=== PATIENT | male | born 1965 | race Caucasian/White ===

== ENCOUNTER 2023-06-26 09:35 | Inpatient (IN) | payer OTHER ==
[2023-06-26 10:42] LABS: BASO % 1.7 % (0-2.0); EOS % 4.6 % (0-4.5); HEMATOCRIT 37.2 % (35.4-49); HEMOGLOBIN 12.9 GM/dL (11.7-16.9); LYMPH % 15.8 % (8-40); MCHC 34.6 g/dl (32.0-35.9); MEAN CELL VOLUME 83.8 fl (80-96); MEAN PLT VOLUME 7.9 fl (7.5-11.1); MONO % 6.8 % (3.8-10.2); NEUT % 71.1 % (42.8-82.8); PLATELET COUNT 329 10^3/uL (134-434); RBC 4.44 M/mm3 (4.00-5.60); RDW 13.8 % (11.9-15.9); WHITE BLOOD COUNT 7.4 K/mm3 (4.0-10.0)
[2023-06-26 10:51] LABS: POTASSIUM 5.1 mmol/L (3.5-5.1)
[2023-06-26 10:54] LABS: ALBUMIN 2.7 g/dl (3.4-5.0); BLOOD UREA NITROGEN 19.6 mg/dL (7-18)
[2023-06-26 10:57] LABS: CREATININE 0.8 mg/dL (0.55-1.3)
[2023-06-26 10:58] LABS: TOT PROT 5.9 g/dl (6.4-8.2)
[2023-06-26 10:59] LABS: BILIRUBIN,TOTAL 0.4 mg/dL (0.2-1)
[2023-06-26 11:02] LABS: N-TERMINAL BNP 781.6 pg/ml (5-125)
[2023-06-26] MEDS ORDERED: NITROGLYCERIN SUBLINGUAL 1/150 0.4 MG TAB ONE (11:35)
[2023-06-26] MEDS: NITROGLYCERIN SUBLINGUAL 1/150 0.4 MG TAB SL ONE (11:38)
[2023-06-26] MEDS: ASPIRIN 81 MG CHEWABLE TABLETS PO ONE ×2 (11:38→12:36)
[2023-06-26] MEDS ORDERED: ASPIRIN 81 MG CHEWABLE TABLETS ONE (12:34)
[2023-06-26] MEDS ORDERED: FUROSEMIDE 40 MG/4 ML INJECTABLE VIAL ONE (13:18)
[2023-06-26] MEDS: FUROSEMIDE 40 MG/4 ML INJECTABLE VIAL IVPUSH ONE (13:20)
[2023-06-26] MEDS ORDERED: LOSARTAN POTASSIUM 50 MG TABLET ONE (15:16)
[2023-06-26] MEDS ORDERED: METOPROLOL TARTRATE 50 MG TABLET (FP) ONE (15:16)
[2023-06-26] MEDS: METOPROLOL TARTRATE 50 MG TABLET (FP) PO SCH (15:21)
[2023-06-26] MEDS: LOSARTAN POTASSIUM 50 MG TABLET PO SCH (15:22)
[2023-06-26] MEDS: CELECOXIB 100 MG CAPSULE PO SCH (15:34)
[2023-06-26] MEDS: INSULIN ASPART SLIDING SCALE (NOVOLOG) 1 VIAL SQ SCH (17:14)
[2023-06-26] MEDS ORDERED: INSULIN (NOVOLOG) ASPART 100 UNITS/ML 10ML VIAL ONE (17:15)
[2023-06-26 20:44] VITALS: BMI 41.1
[2023-06-26] MEDS ORDERED: HEPARIN NA (PORCINE) 5,000 UNITS/ML 1ML VIAL SQ SCH (22:00)
[2023-06-26] MEDS: POLYETHYLENE GLYCOL (HEALTHYLAX) 3350 17 GM PACKET PO SCH (22:22)
[2023-06-26] MEDS: APIXABAN 5 MG TABLET PO SCH (22:22)
[2023-06-26] MEDS: ACETAMINOPHEN 500 MG TABLET (FP) PO PRN (22:37)
[2023-06-27 07:46] LABS: HEMATOCRIT 36.2 % (35.4-49); HEMOGLOBIN 12.1 GM/dL (11.7-16.9); MCH 28.2 pg (25.7-33.7); MCHC 33.4 g/dl (32.0-35.9); MEAN CELL VOLUME 84.3 fl (80-96); MEAN PLT VOLUME 7.7 fl (7.5-11.1); PLATELET COUNT 337 10^3/uL (134-434); RBC 4.29 M/mm3 (4.00-5.60); RDW 13.9 % (11.9-15.9); WHITE BLOOD COUNT 7.3 K/mm3 (4.0-10.0)
[2023-06-27] MEDS ORDERED: ACETAMINOPHEN 500 MG TABLET (FP) PO PRN (08:20)
[2023-06-27 08:21] LABS: POTASSIUM 5.2 mmol/L (3.5-5.1)
[2023-06-27 08:27] LABS: BLOOD UREA NITROGEN 29.5 mg/dL (7-18)
[2023-06-27 08:30] LABS: CREATININE 0.8 mg/dL (0.55-1.3)
[2023-06-27] MEDS: ASPIRIN COATED 81 MG TABLET.EC PO SCH (09:04)
[2023-06-27] MEDS: FUROSEMIDE 40 MG/4 ML INJECTABLE VIAL IVPUSH SCH (09:04)
[2023-06-27] MEDS: ACETAMINOPHEN 325 MG TABLET (FP) PO PRN (20:02)
[2023-06-28] MEDS ORDERED: INSULIN (NOVOLOG) ASPART 100 UNITS/ML 10ML VIAL ONE (06:48)
[2023-06-28 07:12] LABS: HEMATOCRIT 35.3 % (35.4-49); HEMOGLOBIN 12.1 GM/dL (11.7-16.9); MCH 28.7 pg (25.7-33.7); MCHC 34.2 g/dl (32.0-35.9); MEAN PLT VOLUME 7.9 fl (7.5-11.1); PLATELET COUNT 304 10^3/uL (134-434); RBC 4.21 M/mm3 (4.00-5.60); RDW 13.6 % (11.9-15.9); WHITE BLOOD COUNT 7.9 K/mm3 (4.0-10.0)
[2023-06-28 07:26] LABS: POTASSIUM 5.1 mmol/L (3.5-5.1)
[2023-06-28 07:29] LABS: CALCIUM 8.5 mg/dL (8.5-10.1)
[2023-06-28 07:30] LABS: MAGNESIUM 1.9 mg/dL (1.8-2.4)
[2023-06-28 07:32] LABS: ALBUMIN 2.6 g/dl (3.4-5.0); BLOOD UREA NITROGEN 26.4 mg/dL (7-18)
[2023-06-28 07:34] LABS: CREATININE 0.8 mg/dL (0.55-1.3)
[2023-06-28 07:35] LABS: PHOSPHOROUS 3.9 mg/dL (2.5-4.9)
[2023-06-28 07:36] LABS: BILIRUBIN,TOTAL 0.5 mg/dL (0.2-1); TOT PROT 5.8 g/dl (6.4-8.2)
[2023-06-28] MEDS: LIDOCAINE 4% PATCH TP ONE (11:51)
[2023-06-28] MEDS ORDERED: FUROSEMIDE 40 MG/4 ML INJECTABLE VIAL IVPUSH ONE (14:00)
[2023-06-28] MEDS: FUROSEMIDE 40 MG/4 ML INJECTABLE VIAL IVPUSH SCH (14:34)
[2023-06-28] MEDS: INSULIN (LEVEMIR) 100 UNITS/ML UNITS SQ SCH (22:36)
[2023-06-28] MEDS: LIDOCAINE PATCH REMOVAL MC SCH (22:36)
[2023-06-29] MEDS: INSULIN (LEVEMIR) 100 UNITS/ML UNITS SQ SCH ×2 (06:02→22:36)
[2023-06-29 07:18] LABS: HEMATOCRIT 36.9 % (35.4-49); HEMOGLOBIN 12.3 GM/dL (11.7-16.9); MCHC 33.4 g/dl (32.0-35.9); MEAN PLT VOLUME 7.9 fl (7.5-11.1); PLATELET COUNT 336 10^3/uL (134-434); RBC 4.39 M/mm3 (4.00-5.60); RDW 13.7 % (11.9-15.9); WHITE BLOOD COUNT 7.1 K/mm3 (4.0-10.0)
[2023-06-29 07:40] LABS: POTASSIUM 4.9 mmol/L (3.5-5.1)
[2023-06-29 07:44] LABS: BLOOD UREA NITROGEN 23.4 mg/dL (7-18); MAGNESIUM 1.9 mg/dL (1.8-2.4)
[2023-06-29 07:45] LABS: ALBUMIN 2.8 g/dl (3.4-5.0)
[2023-06-29 07:48] LABS: CREATININE 0.8 mg/dL (0.55-1.3); PHOSPHOROUS 3.9 mg/dL (2.5-4.9)
[2023-06-29 07:49] LABS: BILIRUBIN,TOTAL 0.5 mg/dL (0.2-1); TOT PROT 6.2 g/dl (6.4-8.2)
[2023-06-29] MEDS: MAGNESIUM HYDROX 2400MG/30ML ORAL SUSPENSION 30 ML CUP PO PRN (11:57)
[2023-06-29] MEDS: MINERAL OIL ENEMA 133 ML ENEMA RC ONE (11:57)
[2023-06-29] MEDS: LIDOCAINE 4% PATCH TP SCH (16:56)
[2023-06-29] MEDS: oxyCODONE HCL 5 MG TABLET PO PRN (18:59)
[2023-06-29] MEDS: DOCUSATE SODIUM 100 MG CAPSULE (FP) PO SCH (21:40)
[2023-06-29] MEDS: LIDOCAINE PATCH REMOVAL MC SCH (21:40)
[2023-06-30] MEDS: INSULIN (LEVEMIR) 100 UNITS/ML UNITS SQ SCH (06:21)
[2023-06-30 07:32] LABS: POTASSIUM 4.6 mmol/L (3.5-5.1)
[2023-06-30 07:34] LABS: CALCIUM 9.2 mg/dL (8.5-10.1)
[2023-06-30 07:35] LABS: BLOOD UREA NITROGEN 20.6 mg/dL (7-18); MAGNESIUM 1.8 mg/dL (1.8-2.4)
[2023-06-30 07:38] LABS: CREATININE 0.8 mg/dL (0.55-1.3); PHOSPHOROUS 3.8 mg/dL (2.5-4.9)
[2023-06-30 07:39] LABS: BILIRUBIN,TOTAL 0.4 mg/dL (0.2-1); TOT PROT 6.6 g/dl (6.4-8.2)
[2023-07-01 06:02] VITALS: RESP 18
[2023-07-01 07:38] LABS: HEMATOCRIT 35.6 % (35.4-49); HEMOGLOBIN 12.3 GM/dL (11.7-16.9); MCH 28.6 pg (25.7-33.7); MCHC 34.5 g/dl (32.0-35.9); MEAN CELL VOLUME 82.9 fl (80-96); MEAN PLT VOLUME 7.9 fl (7.5-11.1); PLATELET COUNT 326 10^3/uL (134-434); RBC 4.29 M/mm3 (4.00-5.60); RDW 13.9 % (11.9-15.9)
[2023-07-01 07:49] LABS: POTASSIUM 4.5 mmol/L (3.5-5.1)
[2023-07-01 07:53] LABS: CALCIUM 8.8 mg/dL (8.5-10.1)
[2023-07-01 07:54] LABS: ALBUMIN 2.9 g/dl (3.4-5.0); BLOOD UREA NITROGEN 22.2 mg/dL (7-18)
[2023-07-01 07:57] LABS: CREATININE 0.8 mg/dL (0.55-1.3)
[2023-07-01 07:58] LABS: TOT PROT 6.3 g/dl (6.4-8.2)
[2023-07-01 07:59] LABS: BILIRUBIN,TOTAL 0.5 mg/dL (0.2-1)
[2023-07-01 16:26] VITALS: BP 135/88; PULSE 75; TEMP 97.9
== END 2023-07-01 17:46 | disposition home or self-care (01) | DRG 194 ==
LOC: JER 09:35 → JERBED 12:59 → J4W 17:30
PROVIDERS: ADMIT Internal Medicine; ATTEND Internal Medicine
DX: I11.0 Hypertensive heart disease with heart failure (principal); I48.91 Unspecified atrial fibrillation; I16.1 Hypertensive emergency; I50.33 Acute on chronic diastolic (congestive) heart failure; E11.65 Type 2 diabetes mellitus with hyperglycemia; R79.89 Other specified abnormal findings of blood chemistry; M54.9 Dorsalgia, unspecified; Z79.84 Long term (current) use of oral hypoglycemic drugs; I24.89 Other forms of acute ischemic heart disease; R16.0 Hepatomegaly, not elsewhere classified; K76.0 Fatty (change of) liver, not elsewhere classified
CPT/HCPCS: 36415; 70450-TC; 71046-TC-FY; 71275-TC; 76604; 76705-TC; 80048; 80053; 80061; 82010; 82962; 83036; 83735; 83880; 84100; 84439; 84443; 84484; 85025; 85027; 93005; 93010; 93306-TC; 93308; 93970-TC; 99285-25; Q9967